=== PATIENT | male | born 1980 | race American Indian/Alaskan Native ===

== ENCOUNTER 2017-04-01 10:07 | Emergency (ER) | payer MEDICAID ==
[~2017-04-01] VITALS: Ht 180.3 cm; Wt 82.0 kg
[2017-04-01 10:09] VITALS: BP 129/66
== END 2017-04-01 10:32 | disposition left against medical advice (07) ==
LOC: ED 10:26
DX: F10.10 Alcohol abuse, uncomplicated (principal); Z53.21 Procedure and treatment not carried out due to patient leaving prior to being seen by health care provider

== ENCOUNTER 2017-07-27 15:11 | Emergency (ER) | payer MEDICAID ==
[~2017-07-27] VITALS: Ht 167.6 cm; Wt 70.0 kg
[2017-07-27] MEDS ORDERED: BACITRACIN ZINC OINT 500U/GM, 0.9 GM ONE (16:40)
[2017-07-27] MEDS ORDERED: LIDOCAINE 1%, 20ML ONE (16:55)
[2017-07-27] MEDS ORDERED: LIDOCAINE 1%, 20ML SQ ONE (17:00)
[2017-07-27 18:00] VITALS: BP 111/66
== END 2017-07-27 18:48 | disposition home or self-care (01) ==
LOC: ED 18:42
DX: S09.90XA Unspecified injury of head, initial encounter (principal); F10.221 Alcohol dependence with intoxication delirium; E11.9 Type 2 diabetes mellitus without complications; W22.8XXA Striking against or struck by other objects, initial encounter; Y93.89 Activity, other specified; Y92.488 Other paved roadways as the place of occurrence of the external cause; Y99.8 Other external cause status
CPT/HCPCS: 70450; 70486; 99284

== ENCOUNTER 2017-10-14 08:08 | Observation (INO) | payer MEDICAID ==
[~2017-10-14] VITALS: Ht 180.3 cm; Wt 93.0 kg
[2017-10-14] MEDS ORDERED: BENZ1TAB61 PO (08:24)
[2017-10-14] MEDS ORDERED: ZIPR80CA3 PO (08:24)
[2017-10-14] MEDS ORDERED: LISI5TAB7 PO (08:24)
[2017-10-14] MEDS ORDERED: METF500T4 PO (08:24)
[2017-10-14] MEDS ORDERED: SERT50TA5 PO (08:24)
[2017-10-14] MEDS ORDERED: OLAN10TA9 PO (08:24)
[2017-10-14 09:25] LABS: HEMATOCRIT 48.6 % (39.2-51.8); HEMOGLOBIN 16.5 g/dL (13.7-18.0); WHITE BLOOD COUNT 11.3 x10^3/uL (3.4-10)
[2017-10-14 09:32] LABS: BLOOD UREA NITROGEN 9 mg/dL (7-18)
[2017-10-14 09:35] LABS: ACETAMINOPHEN < 2 mcg/mL (10-30)
[2017-10-14 10:29] LABS: DAU SCREEN DISCLAIMER
[2017-10-14] MEDS ORDERED: ONDANSETRON ODT 4 MG PO PRN (23:00)
[2017-10-14] MEDS ORDERED: LORazepam 1MG TABLET PO PRN (23:00)
[2017-10-14] MEDS ORDERED: ACETAMINOPHEN 325 MG TABLET PO PRN (23:00)
[2017-10-14 23:23] VITALS: BP 129/83
[2017-10-15] MEDS: ZIPRASIDONE 40MG CAPSULE PO SCH ×2 (02:13→21:35)
[2017-10-15 07:43] VITALS: BP 128/78
[2017-10-15] MEDS: metFORMIN 500 MG TABLET PO SCH ×2 (08:54→21:35)
[2017-10-15] MEDS: SERTRALINE 50MG TABLET PO SCH (08:54)
[2017-10-15] MEDS: BENZTROPINE 1 MG TABLET PO SCH ×2 (08:54→21:35)
[2017-10-15] MEDS: LISINOPRIL 5 MG TABLET PO SCH (08:54)
[2017-10-15] MEDS: OLANZAPINE 10 MG TABLET PO SCH (08:55)
[2017-10-15 19:32] VITALS: BP 102/67
[2017-10-16 08:00] VITALS: BP 119/81
[2017-10-16] MEDS: OLANZAPINE 10 MG TABLET PO SCH (08:42)
[2017-10-16] MEDS: metFORMIN 500 MG TABLET PO SCH ×2 (08:42→20:41)
[2017-10-16] MEDS: LISINOPRIL 5 MG TABLET PO SCH (08:42)
[2017-10-16] MEDS: SERTRALINE 50MG TABLET PO SCH (08:42)
[2017-10-16] MEDS: BENZTROPINE 1 MG TABLET PO SCH ×2 (08:42→20:39)
[2017-10-16] MEDS ORDERED: ZIPRASIDONE 20 MG INJ IM PRN (16:30)
[2017-10-16] MEDS ORDERED: LURASIDONE 20 MG TABLET PO ONE (16:30)
[2017-10-16 19:39] VITALS: BP 118/81
[2017-10-16] MEDS: ZIPRASIDONE 20MG CAPSULE PO SCH (21:21)
[2017-10-17] MEDS: ZIPRASIDONE 20MG CAPSULE PO SCH (04:31)
[2017-10-17 07:00] VITALS: BP 113/75
[2017-10-17] MEDS: LISINOPRIL 5 MG TABLET PO SCH (08:34)
[2017-10-17] MEDS: BENZTROPINE 1 MG TABLET PO SCH ×2 (08:34→20:46)
[2017-10-17] MEDS: metFORMIN 500 MG TABLET PO SCH ×2 (08:34→20:46)
[2017-10-17] MEDS: SERTRALINE 50MG TABLET PO SCH (08:34)
[2017-10-17] MEDS: OLANZAPINE 5 MG TABLET PO SCH (08:35)
[2017-10-17] MEDS: LURASIDONE 20 MG TABLET PO SCH (08:38)
[2017-10-17] MEDS ORDERED: ZIPRASIDONE 20MG CAPSULE PO PRN (09:30)
[2017-10-18 01:33] VITALS: BP 125/83
[2017-10-18 08:04] VITALS: BP 122/79
[2017-10-18] MEDS: OLANZAPINE 5 MG TABLET PO SCH (08:53)
[2017-10-18] MEDS: LISINOPRIL 5 MG TABLET PO SCH (08:53)
[2017-10-18] MEDS: BENZTROPINE 1 MG TABLET PO SCH ×2 (08:53→20:57)
[2017-10-18] MEDS: metFORMIN 500 MG TABLET PO SCH ×2 (08:53→20:57)
[2017-10-18] MEDS: SERTRALINE 50MG TABLET PO SCH (08:53)
[2017-10-18] MEDS: LURASIDONE 20 MG TABLET PO SCH (08:56)
[2017-10-18 19:52] VITALS: BP 111/77
[2017-10-19 08:24] VITALS: BP 118/75
[2017-10-19] MEDS: BENZTROPINE 1 MG TABLET PO SCH ×2 (08:49→20:13)
[2017-10-19] MEDS: SERTRALINE 50MG TABLET PO SCH (08:49)
[2017-10-19] MEDS: LURASIDONE 20 MG TABLET PO SCH (08:50)
[2017-10-19] MEDS: metFORMIN 500 MG TABLET PO SCH ×2 (08:51→20:13)
[2017-10-19] MEDS: LISINOPRIL 5 MG TABLET PO SCH (08:51)
[2017-10-19] MEDS: OLANZAPINE 5 MG TABLET PO SCH (08:51)
[2017-10-19 20:09] VITALS: BP 111/74
[2017-10-20 07:24] VITALS: BP 115/73
[2017-10-20] MEDS: SERTRALINE 50MG TABLET PO SCH (08:28)
[2017-10-20] MEDS: LISINOPRIL 5 MG TABLET PO SCH (08:28)
[2017-10-20] MEDS: LURASIDONE 20 MG TABLET PO SCH (08:28)
[2017-10-20] MEDS: metFORMIN 500 MG TABLET PO SCH ×2 (08:28→20:37)
[2017-10-20] MEDS: BENZTROPINE 1 MG TABLET PO SCH ×2 (08:28→20:36)
[2017-10-20] MEDS: OLANZAPINE 5 MG TABLET PO SCH (08:33)
[2017-10-20 19:22] VITALS: BP 114/66
[2017-10-21] MEDS ORDERED: SERTRALINE 100MG TABLET ONE (07:45)
[2017-10-21 08:00] VITALS: BP 112/78
[2017-10-21] MEDS: metFORMIN 500 MG TABLET PO SCH ×2 (08:06→20:45)
[2017-10-21] MEDS: BENZTROPINE 1 MG TABLET PO SCH ×2 (08:06→20:45)
[2017-10-21] MEDS: LISINOPRIL 5 MG TABLET PO SCH (08:06)
[2017-10-21] MEDS: LURASIDONE 20 MG TABLET PO SCH (08:06)
[2017-10-21] MEDS: SERTRALINE 50MG TABLET PO SCH (08:07)
[2017-10-21] MEDS: OLANZAPINE 5 MG TABLET PO SCH (08:07)
[2017-10-21 20:14] VITALS: BP 123/81
[2017-10-22 07:23] VITALS: BP 116/81
[2017-10-22] MEDS ORDERED: SERTRALINE 100MG TABLET ONE (07:55)
[2017-10-22] MEDS: LISINOPRIL 5 MG TABLET PO SCH (08:23)
[2017-10-22] MEDS: OLANZAPINE 5 MG TABLET PO SCH (08:23)
[2017-10-22] MEDS: BENZTROPINE 1 MG TABLET PO SCH (08:23)
[2017-10-22] MEDS: metFORMIN 500 MG TABLET PO SCH (08:23)
[2017-10-22] MEDS: SERTRALINE 50MG TABLET PO SCH (08:24)
[2017-10-22] MEDS: LURASIDONE 20 MG TABLET PO SCH (08:24)
== END 2017-10-22 14:55 ==
LOC: ED 11:37 → SUATTDRO 22:49 → EDIP 22:51 → 3E 23:17
PROVIDERS: ADMIT Hospitalist; ATTEND Hospitalist
DX: R45.851 Suicidal ideations (principal); R45.850 Homicidal ideations; R44.0 Auditory hallucinations; F20.9 Schizophrenia, unspecified; E11.9 Type 2 diabetes mellitus without complications; I10 Essential (primary) hypertension; F12.90 Cannabis use, unspecified, uncomplicated; F17.210 Nicotine dependence, cigarettes, uncomplicated; Z79.4 Long term (current) use of insulin; Z91.14 Patient's other noncompliance with medication regimen; Z91.19 Patient's noncompliance with other medical treatment and regimen
CPT/HCPCS: 36415; 80048; 80307; 80329; 82040; 82962; 85025; 99285; G0378; G0479; G0480

== ENCOUNTER 2018-10-19 20:36 | Emergency (ER) | payer MEDICAID ==
[~2018-10-19] VITALS: Ht 180.3 cm; Wt 88.6 kg
[~2018-10-19 20:36] MED LIST: BENZ1TAB61 PO; LISI5TAB7 PO; METF500T17 PO; OLAN10TA9 PO; SERT50TA5 PO; ZIPR80CA3 PO
[2018-10-19 20:39] VITALS: BP 120/70
[2018-10-19 21:44] LABS: BASOPHILS # (AUTO) 0.07 x10^3/uL (0-0.1); BASOPHILS % (AUTO) 1 % (0-1); EOSINOPHILS # (AUTO) 0.03 x10^3/uL (0-0.4); EOSINOPHILS % (AUTO) 0 % (1-7); LYMPHOCYTES # (AUTO) 2.48 x10^3/uL (1-3.4); LYMPHOCYTES % (AUTO) 28 % (22-44); MD NO; MEAN CORPUSCULAR HEMOGLOBIN 28.2 pg (27.5-34.5); MEAN CORPUSCULAR HGB CONC 33.3 g/dL (33.2-36.2); MEAN CORPUSCULAR VOLUME 84.5 fL (81-97); MEAN PLATELET VOLUME 7.2 fL (7.4-10.4); MONOCYTES # (AUTO) 0.96 x10^3/uL (0.2-0.8); MONOCYTES % (AUTO) 11 % (2-9); NEUTROPHILS # (AUTO) 5.25 x10^3/uL (1.8-6.8); NEUTROPHILS % (AUTO) 60 % (42-75); PLATELET COUNT 393 x10^3/uL (130-400); RED BLOOD COUNT 5.01 x10^6/uL (4.38-5.82)
[2018-10-19 21:52] LABS: ALBUMIN 3.3 g/dL (3.4-5.0); ANION GAP 13 mmol/L (5-15); CALCIUM 8.2 mg/dL (8.5-10.1); CHLORIDE 105 mmol/L (98-107)
[2018-10-19 21:56] LABS: ALANINE AMINOTRANSFERASE 24 U/L (12-78); ALKALINE PHOSPHATASE 102 U/L (45-117); BILIRUBIN,TOTAL 0.4 mg/dL (0.2-1.0); CREATININE 0.61 mg/dL (0.7-1.3); TOTAL PROTEIN 7.8 g/dL (6.4-8.2)
[2018-10-19 21:57] LABS: ACETAMINOPHEN < 2 mcg/mL (10-30); SALICYLATE LEVEL < 1.7 mg/dL (2.8-20.0)
== END 2018-10-19 23:46 | disposition home or self-care (01) ==
LOC: ED 23:04 → MERGE 23:04 → EDBD 23:04 → ED 23:46
DX: F10.229 Alcohol dependence with intoxication, unspecified (principal); Z72.9 Problem related to lifestyle, unspecified; Z75.9 Unspecified problem related to medical facilities and other health care; Z91.14 Patient's other noncompliance with medication regimen; Y90.9 Presence of alcohol in blood, level not specified
CPT/HCPCS: 36415; 80053; 80307; 80329; 85025; 99283; G0480

== ENCOUNTER 2018-12-23 00:22 | Emergency (ER) | payer MEDICAID ==
[~2018-12-23] VITALS: Ht 180.3 cm; Wt 88.0 kg
[~2018-12-23 00:22] MED LIST changes: +SERT50TA28 PO; -SERT50TA5 PO
--- NOTE | 2018-12-23 00:22 | NUR ---
BIB EMS for auditory hallucinations x "my whole life," states that he "hears the ," pt going off on tangents about the [place] [employer], the FBI, and how "the government owns" him.
--- NOTE | 2018-12-23 00:26 | NUR ---
Pt ambulated to bathroom, urine sample requested. Pt back to room without incident.
[2018-12-23 00:35] VITALS: BP 146/94
--- NOTE | 2018-12-23 01:12 | NUR ---
Pt advised of steps in the process to evaluate him. Pt refused and started getting dressed, pt states "I'm not talking to no computer, I don't trust this room." Pt still denies SI/HI. advised that pt is not willing to stay.
[2018-12-23 01:15] LABS: BASOPHILS # (AUTO) 0.07 x10^3/uL (0-0.1); BASOPHILS % (AUTO) 1 % (0-1); EOSINOPHILS # (AUTO) 0.04 x10^3/uL (0-0.4); EOSINOPHILS % (AUTO) 0 % (1-7); LYMPHOCYTES # (AUTO) 2.86 x10^3/uL (1-3.4); LYMPHOCYTES % (AUTO) 22 % (22-44); MD NO; MEAN CORPUSCULAR HEMOGLOBIN 28.8 pg (27.5-34.5); MEAN CORPUSCULAR HGB CONC 33.7 g/dL (33.2-36.2); MEAN CORPUSCULAR VOLUME 85.5 fL (81-97); MEAN PLATELET VOLUME 7.2 fL (7.4-10.4); MONOCYTES # (AUTO) 0.88 x10^3/uL (0.2-0.8); MONOCYTES % (AUTO) 7 % (2-9); NEUTROPHILS # (AUTO) 9.49 x10^3/uL (1.8-6.8); NEUTROPHILS % (AUTO) 71 % (42-75); PLATELET COUNT 350 x10^3/uL (130-400); RED BLOOD COUNT 5.17 x10^6/uL (4.38-5.82); RED CELL DISTRIBUTION WIDTH 15.1 % (9.4-14.8)
[2018-12-23 01:27] LABS: ALBUMIN 3.7 g/dL (3.4-5.0); ANION GAP 8 mmol/L (5-15); CALCIUM 8.2 mg/dL (8.5-10.1); CHLORIDE 109 mmol/L (98-107); CREATININE 0.74 mg/dL (0.7-1.3); SALICYLATE LEVEL 2.1 mg/dL (2.8-20.0)
[2018-12-23 01:29] LABS: AMPHETAMINE SCREEN, URINE Negative (Negative); BARBITURATE SCREEN, URINE Negative (Negative); BENZODIAZEPINE SCREEN, URINE Negative (Negative); CANNABINOID SCREEN, URINE Negative (Negative); COCAINE SCREEN, URINE Negative (Negative); METHADONE SCREEN, URINE Negative (Negative); OPIATE SCREEN, URINE Negative (Negative)
[2018-12-23 01:29] LABS: ACETAMINOPHEN < 2 mcg/mL (10-30)
== END 2018-12-23 01:16 | disposition left against medical advice (07) ==
LOC: ED 00:45
DX: F99 Mental disorder, not otherwise specified (principal); F20.9 Schizophrenia, unspecified; E11.9 Type 2 diabetes mellitus without complications; F17.200 Nicotine dependence, unspecified, uncomplicated
CPT/HCPCS: 36415; 80048; 80307; 80329; 82040; 85025; 99284; G0480

== ENCOUNTER 2018-12-26 23:43 | Emergency (ER) | payer MEDICAID ==
[~2018-12-26] VITALS: Ht 180.3 cm; Wt 74.0 kg
[2018-12-27] MEDS ORDERED: DIPH,PERTUSS(ACELL),TET VAC/PF 0.5 ML IM-VACC ONE ×2 (00:30→01:14)
[2018-12-27] MEDS ORDERED: LIDOCAINE-MPF 1%, 5ML ONE (01:12)
--- NOTE | 2018-12-27 02:35 | NUR ---
TASK RN: PT PULLED OFF MONITORING. PT RESTING IN GURNEY W/ EYES CLOSED. EVEN/REGULAR RESPIRATIONS NOTED. POC IS EYE ASSESSMENT WHEN SOBER.
--- NOTE | 2018-12-27 04:18 | NUR ---
Pt resting on gurney at this time, resperations equal and unlabored. Will cont to monitor.
[2018-12-27 04:22] VITALS: BP 132/88
--- NOTE | 2018-12-27 05:12 | NUR ---
PT REFUSING LAC REPAIR AND REFUSING TO LEAVE ROOM WHEN AFTER DC. SECURITY AT BEDSIDE FOR ASSISTANCE.
== END 2018-12-27 05:16 | disposition home or self-care (01) ==
LOC: ED 23:59
DX: S02.32XA Fracture of orbital floor, left side, initial encounter for closed fracture (principal); S01.511A Laceration without foreign body of lip, initial encounter; F10.120 Alcohol abuse with intoxication, uncomplicated; W01.0XXA Fall on same level from slipping, tripping and stumbling without subsequent striking against object, initial encounter; Y93.89 Activity, other specified; Y92.410 Unspecified street and highway as the place of occurrence of the external cause; Y99.8 Other external cause status
CPT/HCPCS: 70450; 70486; 72125; 90471; 90715

== ENCOUNTER 2019-02-04 10:11 | Emergency (ER) | payer MEDICAID ==
[~2019-02-04] VITALS: Ht 180.3 cm; Wt 92.6 kg
--- NOTE | 2019-02-04 10:31 | NUR ---
PA at bedside.
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
--- NOTE | 2019-02-04 11:03 | NUR ---
RECEIVED REPORT FROM MEGAN LOREDO, ASSUMING CARE OF PT.
[2019-02-04 11:04] LABS: BASOPHILS # (AUTO) 0.07 x10^3/uL (0-0.1); BASOPHILS % (AUTO) 1 % (0-1); EOSINOPHILS # (AUTO) 0.05 x10^3/uL (0-0.4); EOSINOPHILS % (AUTO) 1 % (1-7); LYMPHOCYTES # (AUTO) 1.37 x10^3/uL (1-3.4); LYMPHOCYTES % (AUTO) 26 % (22-44); MD NO; MEAN CORPUSCULAR HEMOGLOBIN 27.5 pg (27.5-34.5); MEAN CORPUSCULAR HGB CONC 32.5 g/dL (33.2-36.2); MEAN CORPUSCULAR VOLUME 84.8 fL (81-97); MEAN PLATELET VOLUME 7.7 fL (7.4-10.4); MONOCYTES # (AUTO) 0.47 x10^3/uL (0.2-0.8); MONOCYTES % (AUTO) 9 % (2-9); NEUTROPHILS # (AUTO) 3.25 x10^3/uL (1.8-6.8); NEUTROPHILS % (AUTO) 62 % (42-75); PLATELET COUNT 298 x10^3/uL (130-400); RED BLOOD COUNT 5.15 x10^6/uL (4.38-5.82); RED CELL DISTRIBUTION WIDTH 14.2 % (9.4-14.8)
[2019-02-04 11:12] LABS: ANION GAP 5 mmol/L (5-15); CALCIUM 8.4 mg/dL (8.5-10.1); CHLORIDE 105 mmol/L (98-107); CREATININE 0.58 mg/dL (0.7-1.3)
[2019-02-04 11:13] LABS: ACETAMINOPHEN < 2 mcg/mL (10-30); SALICYLATE LEVEL < 1.7 mg/dL (2.8-20.0)
--- NOTE | 2019-02-04 11:18 | NUR ---
URINE COLLECTED AND WALKED TO LAB. PT RESTING IN ROOM AT THIS TIME, AWAITING LAB RESULTS AND PSYCH EVAL.
[2019-02-04 11:39] LABS: AMPHETAMINE SCREEN, URINE Negative (Negative); BARBITURATE SCREEN, URINE Negative (Negative); BENZODIAZEPINE SCREEN, URINE Negative (Negative); CANNABINOID SCREEN, URINE Negative (Negative); COCAINE SCREEN, URINE Negative (Negative); METHADONE SCREEN, URINE Negative (Negative); OPIATE SCREEN, URINE Negative (Negative)
--- NOTE | 2019-02-04 12:00 | NUR ---
THROUGHPUT RN: PACKET FAXED TO [facility], [facility]
--- NOTE | 2019-02-04 12:09 | NUR ---
Report from Kerri Meza. Pt asleep at this time. Wakes to voice. Pt denies SI or HI. States that "I'm just waiting for the doctor or something like that". Informed of plan for telespych. Calm and cooperative.
[2019-02-04] MEDS ORDERED: OLANZAPINE 5 MG TABLET PO ONE (13:30)
[2019-02-04] MEDS ORDERED: OLANZAPINE 5 MG TABLET ONE (14:16)
[2019-02-04] MEDS ORDERED: ACETAMINOPHEN 325 MG TABLET PO PRN (15:30)
[2019-02-04 15:55] LABS: HEMOGLOBIN A1C 8.5 % (4.2-6.3)
--- NOTE | 2019-02-04 17:45 | NUR ---
LUNCH BREAK NOTE: PT RESTING IN GURNEY IN NAD. PT BEING OBSERVED BY SITTER.
--- NOTE | 2019-02-04 18:10 | NUR ---
CAROLINE NEWTON DENIED DUE TO INSURANCE
[2019-02-04] MEDS: INSULIN LISPRO 100 UNITS/ML, PEN SQ-INSULIN SCH ×2 (21:00→22:06)
[2019-02-04] MEDS ORDERED: ENOXAPARIN 40 MG/0.4 ML ONE (21:55)
[2019-02-04] MEDS ORDERED: NICOTINE 7 MG/24 HR PATCH.TD24 ONE (21:55)
[2019-02-04] MEDS ORDERED: INSULIN LISPRO 100 UNITS/ML, PEN ONE (21:56)
[2019-02-04] MEDS: ENOXAPARIN 40 MG/0.4 ML SQ SCH (22:06)
[2019-02-04] MEDS: NICOTINE 7 MG/24 HR PATCH.TD24 TD SCH (22:07)
--- NOTE | 2019-02-05 00:27 | NUR ---
RECEIVED REPORT FROM VANESSA LOREDO. PT RESTING IN BED SLEEPING WITH EYES CLOSED. NO STATED NEEDS AT THIS TIME. SITTER AT DOOR FOR FREQUENT OBS. WILL CONTINUE TO MONITR.
--- NOTE | 2019-02-05 01:17 | NUR ---
PT RESTING IN BED WITH EYES CLOSED. NO NEEDS AT THIS TIME. SITTER AT DOOR.
--- NOTE | 2019-02-05 02:22 | NUR ---
PT RESTING IN BED WITH EYE SCLOSED. NO STATED NEEDS. RESP EVEN AND NON LABORED.
--- NOTE | 2019-02-05 03:10 | NUR ---
PT CONTINUES TO REST IN BED WITH EYES CLOSED. RESP EVEN AND NON LABORED. SITTER AT DOOR.
--- NOTE | 2019-02-05 04:21 | NUR ---
PT RESTING IN BED WITH EYES CLOSED. SITTER AT DOOR.
--- NOTE | 2019-02-05 05:01 | NUR ---
PT RESTING IN BED WITH EYES CLOSED, RESP EVEN AND NON LABORED. SITTER AT DOOR.
[2019-02-05 05:24] LABS: BASOPHILS # (AUTO) 0.04 x10^3/uL (0-0.1); BASOPHILS % (AUTO) 1 % (0-1); EOSINOPHILS # (AUTO) 0.22 x10^3/uL (0-0.4); EOSINOPHILS % (AUTO) 4 % (1-7); LYMPHOCYTES # (AUTO) 2.12 x10^3/uL (1-3.4); LYMPHOCYTES % (AUTO) 39 % (22-44); MD NO; MEAN CORPUSCULAR HGB CONC 32.8 g/dL (33.2-36.2); MEAN CORPUSCULAR VOLUME 85.2 fL (81-97); MEAN PLATELET VOLUME 7.3 fL (7.4-10.4); MONOCYTES # (AUTO) 0.52 x10^3/uL (0.2-0.8); MONOCYTES % (AUTO) 10 % (2-9); NEUTROPHILS # (AUTO) 2.55 x10^3/uL (1.8-6.8); NEUTROPHILS % (AUTO) 47 % (42-75); PLATELET COUNT 303 x10^3/uL (130-400); RED BLOOD COUNT 4.78 x10^6/uL (4.38-5.82); RED CELL DISTRIBUTION WIDTH 14.5 % (9.4-14.8)
[2019-02-05 05:32] LABS: CHLORIDE 110 mmol/L (98-107)
[2019-02-05] MEDS: INSULIN LISPRO 100 UNITS/ML, PEN SQ-INSULIN SCH ×3 (05:43→17:11)
[2019-02-05 05:49] LABS: ALANINE AMINOTRANSFERASE 56 U/L (12-78); ALBUMIN 2.8 g/dL (3.4-5.0); ALKALINE PHOSPHATASE 116 U/L (45-117); ANION GAP 5 mmol/L (5-15); BILIRUBIN,TOTAL 0.4 mg/dL (0.2-1.0); CALCIUM 8.4 mg/dL (8.5-10.1); CREATININE 0.66 mg/dL (0.7-1.3); TOTAL PROTEIN 6.7 g/dL (6.4-8.2)
--- NOTE | 2019-02-05 06:37 | NUR ---
PT SITTING UP ON EDGE OF BED, REQUESTED WATER. NO OTHER NEEDS STATED.
--- NOTE | 2019-02-05 07:03 | NUR ---
REPORT TO BETTY LOREDO. BREAKFAST HAS BEEN ORDERED.
[2019-02-05] MEDS ORDERED: INSULIN LISPRO 100 UNITS/ML, PEN ONE (08:35)
[2019-02-05] MEDS: metFORMIN 500 MG TABLET PO SCH (08:42)
--- NOTE | 2019-02-05 09:55 | NUR ---
report from FACUNDO Gordon. pt up self with steady gait to restroom. sitter at doorway for continuous monitoring. no other needs at this time.
--- NOTE | 2019-02-05 10:37 | NUR ---
pt up self with steady gait. currently taking shower. tech/sitter at doorway. no needs at this time.
--- NOTE | 2019-02-05 11:18 | NUR ---
THROUGHPUT RN: Packet faxed to [facility] and [facility]
[2019-02-05] MEDS ORDERED: LISINOPRIL 5 MG TABLET ONE (11:34)
[2019-02-05] MEDS: LISINOPRIL 5 MG TABLET PO SCH (11:38)
--- NOTE | 2019-02-05 11:38 | NUR ---
pt medicated per jan and provided with coffee and sprite. vss. pt resting in room lunch tray ordered. no other needs at this time.
--- NOTE | 2019-02-05 11:41 | NUR ---
THROUGHPUT RN: Confirmation fax received from [facility], second "busy" response from [facility], called and received new fax number [phone], fax sent at this time.
--- NOTE | 2019-02-05 11:50 | NUR ---
THROUGHPUT RN: Called [facility] and spoke with Thao who requested we retry sending to [phone] after two unsucessful attempts to fax packet to [phone]. Fax sent to [phone] as requested.
--- NOTE | 2019-02-05 12:02 | NUR ---
lunch trasy provided. pt eating in room. sitter at doorway for continuous monitoring. no needs at this time.
--- NOTE | 2019-02-05 12:17 | NUR ---
THROUGHPUT RN: Confirmation fax received from [facility]
--- NOTE | 2019-02-05 13:24 | NUR ---
pt resting in room. no needs at this time. sitter at doorway for continuous monitoring.
--- NOTE | 2019-02-05 14:17 | NUR ---
pt resting in room. sitter at doorway for continuous monitoring. no needs at this time.
--- NOTE | 2019-02-05 14:47 | NUR ---
hospitalist at bedside
--- NOTE | 2019-02-05 15:50 | NUR ---
PT RESTING IN ROOM. NO NEEDS AT THIS TIME. SITTER AT DOORWAY FOR CONTINUOUS MONITORING.
--- NOTE | 2019-02-05 16:54 | NUR ---
PT RESTING IN ROOM. DINNER TRAY ORDERED. NO NEEDS AT THIS TIME. SITTER AT DOOR WAY FOR CONTINUOUS MONITORING.
[2019-02-05] MEDS ORDERED: NICOTINE 7 MG/24 HR PATCH.TD24 ONE (17:04)
[2019-02-05] MEDS ORDERED: ENOXAPARIN 40 MG/0.4 ML ONE (17:04)
[2019-02-05] MEDS: NICOTINE 7 MG/24 HR PATCH.TD24 TD SCH (17:11)
[2019-02-05] MEDS: ENOXAPARIN 40 MG/0.4 ML SQ SCH (17:11)
--- NOTE | 2019-02-05 17:12 | NUR ---
pt resting in room. sitter at doorway for continuous monitoring. medicated per mar. refusing some medications. education provided but continues to refuse. no needs at this time. pt up to restroom with sitter.
--- NOTE | 2019-02-05 17:53 | NUR ---
dinner tray provided. pt eating in room. no needs at this time. sitter at doorway for continuous monitoring.
--- NOTE | 2019-02-05 18:54 | NUR ---
pt resting in room. no needs at this time. sitter at doorway for continuous monitoring.
--- NOTE | 2019-02-05 19:39 | NUR ---
pt resting in room. no needs at this time. sitter at doorway for continuous monitoring.
[2019-02-05] MEDS ORDERED: OLANZAPINE 5 MG TABLET ONE (20:15)
[2019-02-05] MEDS ORDERED: FLUOXETINE HCL 20 MG CAPSULE ONE (20:15)
--- NOTE | 2019-02-05 20:45 | NUR ---
pt moved to room 39 per request for working tv. pt resting in room watching tv. no needs at this time. sitter at doorway for continuous monitoring.
--- NOTE | 2019-02-05 21:36 | NUR ---
pt resting in room. provided crackers and peanut butter. no needs at this time. sitter at doorway for continuous monitoring.
--- NOTE | 2019-02-05 23:00 | NUR ---
REPORT FROM GLADYS BINGHAM RN. PT RESTING IN BED WITH EYES CLOSED. SITTER AT DOOR .
[2019-02-06] MEDS ORDERED: FLUOXETINE HCL 20 MG CAPSULE ONE ×2 (00:15→13:09)
[2019-02-06] MEDS ORDERED: OLANZAPINE 5 MG TABLET ONE ×2 (00:16→13:10)
[2019-02-06] MEDS: OLANZAPINE 5 MG TABLET PO SCH ×2 (00:19→13:17)
[2019-02-06] MEDS: FLUOXETINE HCL 20 MG CAPSULE PO SCH ×2 (00:19→13:17)
[2019-02-06] MEDS: metFORMIN 500 MG TABLET PO SCH ×3 (00:20→22:34)
[2019-02-06] MEDS: INSULIN LISPRO 100 UNITS/ML, PEN SQ-INSULIN SCH ×5 (00:20→22:43)
--- NOTE | 2019-02-06 00:20 | NUR ---
pt stated he received all his evening medication. pt resting calmly in bed. sitter at door
--- NOTE | 2019-02-06 00:32 | NUR ---
FLOAT RN: PT RESTING IN ROOM. SITTER AT DOOR. PT UNDER CONSTANT WATCH. WILL CONTINUE TO MONITOR.
--- NOTE | 2019-02-06 01:15 | NUR ---
REPORT GIVEN TO FACUNDO DAVIDSON
--- NOTE | 2019-02-06 01:45 | NUR ---
PT RESTING CALMLY IN BED, RESP EVEN AND NON LABORED. WILL CONTINUE TO MONITOR. SITTER AT DOOR.
--- NOTE | 2019-02-06 02:22 | NUR ---
PT RESTING CAMLY IN BED. NO NEEDS AT THIS TIME. SITTER AT DOOR.
--- NOTE | 2019-02-06 03:11 | NUR ---
PT RESTING CALMLY IN BED. RESP EVEN AND NON LABORED. SITTER AT DOOR
--- NOTE | 2019-02-06 04:51 | NUR ---
PT CONTINUES TO REST CALMLY IN BED. SITTER AT DOOR.
--- NOTE | 2019-02-06 05:41 | NUR ---
PT RESTING CALMLY IN BED WITH EYES CLOSED. NO STATED NEEDS AT THIS TIME.
--- NOTE | 2019-02-06 06:20 | NUR ---
MORNING FSBS DONE. PT CALM, FLAT. SITTER AT DOOR. WILL CONTINUE TO MONITOR.
--- NOTE | 2019-02-06 06:57 | NUR ---
Recieved bedside report from FACUNDO Hess. All questions answered. Pt asleep on hospital bed. NADN. All SI precautions in place. Sitter near doorway in direct line of sight for observation. Pt has even chest rise and fall.
--- NOTE | 2019-02-06 08:52 | NUR ---
Pt provided breakfast tray. NADN. No needs expressed. Sitter near doorway in direct line of sight for observation.
[2019-02-06] MEDS ORDERED: LISINOPRIL 5 MG TABLET ONE (13:09)
[2019-02-06] MEDS: LISINOPRIL 5 MG TABLET PO SCH (13:17)
--- NOTE | 2019-02-06 13:30 | NUR ---
LATE NOTE ENTRY FOR 929: Pt sleeping on bed. NADN. No needs expressed. Sitter in direct line of sight for observation.
--- NOTE | 2019-02-06 14:01 | NUR ---
LATE NOTE ENTRY FOR 1030: Pt sleeping on hospital bed. NADN. No needs expressed. Sitter near doorway in direct line of sight for observation.
--- NOTE | 2019-02-06 14:02 | NUR ---
LATE NOTE GREG FOR 1130: Pt sleeping on hospital bed. NADN. No needs expressed. Sitter near doorway in direct line of sight for observation.
--- NOTE | 2019-02-06 14:02 | NUR ---
LATE NOTE GREG FOR 1230: Pt sleeping on hospital bed. NADN. No needs expressed. Sitter near doorway in direct line of sight for observation.
--- NOTE | 2019-02-06 14:03 | NUR ---
LATE NOTE KRISTENY FOR 1330: Pt provided breakfast tray. Pt appreciative. NADN. No needs expressed. Sitter near doorway in direct line of sight for observation.
--- NOTE | 2019-02-06 14:24 | NUR ---
Pt requesting to shower. Provided pt with new gown, linens, towel, wash clothes, socks, and toiletries. Changed pt's linenes on bed. Pt appreciative. Sitter in doorway of shower in direct line of sight for observation.
[2019-02-06] MEDS ORDERED: ENOXAPARIN 40 MG/0.4 ML ONE (15:58)
[2019-02-06] MEDS ORDERED: NICOTINE 7 MG/24 HR PATCH.TD24 ONE (15:59)
[2019-02-06] MEDS: ENOXAPARIN 40 MG/0.4 ML SQ SCH (16:08)
[2019-02-06] MEDS: NICOTINE 7 MG/24 HR PATCH.TD24 TD SCH (16:08)
[2019-02-06] MEDS ORDERED: INSULIN LISPRO 100 UNITS/ML, PEN ONE (16:11)
--- NOTE | 2019-02-06 16:29 | NUR ---
LATE NOTE ENTRY FOR 153: Provided pt medication per EMAR. Pt appreciative. Pt asks, "Do you hear the voices I am hearing in my head? Is this from the diabetes? Is this because I am on new meds?". Pt education provided. Pt stated verbal understanding. NADN. Pt watching TV. Sitter near doorway in direct line of sight for observation. No needs expressed at this time.
--- NOTE | 2019-02-06 16:31 | NUR ---
Pt requesting coffee. Provided for pt. Pt appreciative. NADN. Pt watching TV and resting on gurney. No needs requested at this time. Sitter near doorway in direct line of sight for observation.
--- NOTE | 2019-02-06 17:52 | NUR ---
Pt resting on gurney watching TV. NADN. No needs expressed. All safety precautions in place. Sitter near doorway in direct line of sight for observation.
--- NOTE | 2019-02-06 19:08 | NUR ---
Provided report to FACUNDO Bowman. All questions answered. FACUNDO Bowman assuming care of pt at this time.
--- NOTE | 2019-02-06 19:30 | NUR ---
PT RESTING WITH EYES CLOSED, NO DISTESS NOTED, SITTER OUT WSID
--- NOTE | 2019-02-06 22:20 | NUR ---
FSBS DONE, PT MEDICATED PER SLIDING SCALE, GIVEN DIET SPITE
--- NOTE | 2019-02-07 | NUR ---
PT CONTINUES TO REST WITH EYE CLOSED, NO DISTRESS NOTED, SITTER OUTSIDE DOOR
--- NOTE | 2019-02-07 01:54 | NUR ---
PT RESTING WITH EYES CLOSED, NO DISTRESS NOTED, SITTER OUTSIDE DOOR
--- NOTE | 2019-02-07 02:26 | NUR ---
PT WANTS TO URINATE SOTTER IS AT DOOR GIVEN URINAL FOR URINATION.
--- NOTE | 2019-02-07 03:00 | NUR ---
PT RESING IN BED WITH EYES CLOSED, NO DISTRESS NOTE, SITTER OUTSIDE DOOR
--- NOTE | 2019-02-07 05:00 | NUR ---
PT RESTING QUIETLY WITH EYES CLOSED, NO DISTRESS NOTED, SITTER OUTSIDE DOOR
--- NOTE | 2019-02-07 07:10 | NUR ---
REPORT RECEIVED FROM NATO LOREDO. PATIENT SITTING ON BEDSIDE/WATCHGING T Addendum: 02/07/19 at 0758 by RFRUHLING PATIENT SITTING ON BEDSIDE WATCHING TV. ALERT/ORIENTED AND PLEASANT. VSS. FSBS 141. REPORTS HE IS HERE "BECAUSE THE VOICES WERE GETTING TOO LOUD, AND THE PLACE WHERE I WAS STAYING WAS DIRTY SO I NEEDED A PSYCH EVAL." DENIES AUDITORY/VISUAL STIMULI AT THIS TIME. DENIES DISCOMFORT OR ANY ADDITIONAL NEEDS. SUPERVISED TO RESTROOM WHERE PATIENT VOIDED (AMBULATED W/OUT DIFFICULTY). BREAKFAST ORDERED. ROOM REMAINS SECURED FOR PSYCH PRECUATIONS W/ BEDSIDE SITTER FOR SAFETY. PATIENT UPDATED ON ESTIMATED POC
--- NOTE | 2019-02-07 08:20 | NUR ---
PATIENT CONTINUES TO SIT ON BEDSIDE WATCHING TV. ALERT/ORIENTED AND PLEASANT. DENIES AUDITORY/VISUAL STIMULI AT THIS TIME. DENIES DISCOMFORT OR ANY ADDITIONAL NEEDS. BREAKFAST DELIVERED. GIVEN ADDITIONAL COFFEE. ROOM REMAINS SECURED FOR PSYCH PRECUATIONS W/ BEDSIDE SITTER FOR SAFETY. PATIENT UPDATED ON ESTIMATED POC (2N ADMIT). NO FURTHER CONCERNS AT THIS TIME
--- NOTE | 2019-02-07 09:20 | NUR ---
RESTING IN BED W/ SIDERAILS UP WATCHING TV. ALERT/ORIENTED AND PLEASANT. DENIES DISCOMFORT OR AUDITORY/VISUAL STIMULI AT THIS TIME. ATE ENTIRE BREAKFAST. ROOM REMAINS SECURED FOR PSYCH PRECUATIONS W/ BEDSIDE SITTER FOR SAFETY. NO FURTHER CONCERNS AT THIS TIME
[2019-02-07] MEDS: INSULIN LISPRO 100 UNITS/ML, PEN SQ-INSULIN SCH ×4 (09:54→21:26)
[2019-02-07] MEDS ORDERED: LISINOPRIL 5 MG TABLET ONE (10:02)
[2019-02-07] MEDS ORDERED: OLANZAPINE 5 MG TABLET ONE (10:03)
--- NOTE | 2019-02-07 10:40 | NUR ---
SITTING IN ROOM PLEASANTLY WATCHING TV. TALKED TO PATIENT FOR AWHILE TO PROVIDE COMPANY.APPEARS TO BE DOING WELL, CONTINUES TO DENIE DISCOMFORT OR AUDITORY/VISUAL STIMULI AT THIS TIME. LUNCH TRAY ORDERED. ROOM REMAINS SECURED FOR PSYCH PRECUATIONS W/ BEDSIDE SITTER FOR SAFETY. NO FURTHER CONCERNS AT THIS TIME. MOTION GRAPHICS ARTIST AT BEDSIDE- TOLD PATIENT THAT HE IS TO MEET A TUFTER IN A FEW MOMENTS FOR RE-EVAL
[2019-02-07] MEDS: LISINOPRIL 5 MG TABLET PO SCH (10:58)
[2019-02-07] MEDS: OLANZAPINE 5 MG TABLET PO SCH (10:58)
[2019-02-07] MEDS: FLUOXETINE HCL 20 MG CAPSULE PO SCH (10:58)
[2019-02-07] MEDS: metFORMIN 500 MG TABLET PO SCH ×2 (10:58→21:11)
--- NOTE | 2019-02-07 11:50 | NUR ---
SITTING IN ROOM WATCHING TV. REPORTS HE IS SLIGHLY IRRITATED FROM CONVERSATION HE HAD WITH WELDER/FABRICATOR ABOUT THE NECCESITY OF HIM STAYING IN THE HOSPITAL FOR FURTHER EVALUATION. ASSOCIATE LOAN OFFICER ABLE TO RE-DIRECT. ROOM REMAINS SECURED FOR PSYCH PRECUATIONS W/ BEDSIDE SITTER FOR SAFETY. NO FURTHER CONCERNS AT THIS TIME.
--- NOTE | 2019-02-07 12:30 | NUR ---
MOOD REMAINS SLIGHTLY NEGATIVE. IN TUBE CONVERSION TECHNICIAN SPENT TIME WITH PATIENT AGAIN TRYING TO POINT OUT POSITIVES. ATE ENTIRE LUNCH. REFUSED INSULIN COVERAGE (BS 158 SO IN TUBE CONVERSION TECHNICIAN DID NOT PUSH THE ISSUE WITH CURRENT MOOD). ROOM REMAINS SECURED FOR PSYCH PRECUATIONS W/ BEDSIDE SITTER FOR SAFETY. NO FURTHER CONCERNS AT THIS TIME.
--- NOTE | 2019-02-07 13:45 | NUR ---
PATIENT AOFFERED prn ATIVAN HE SEEMS TO BE FIXATED ON HOW HE SHOULD BE ABLE TO LEAVE. OFFERED ACTIVITIES (DIFFERENT BOOKS) & WALKED DOWELL WITH PATIENT. ROOM REMAINS SECURED FOR PSYCH PRECUATIONS W/ BEDSIDE SITTER FOR SAFETY. NO FURTHER CONCERNS AT THIS TIME.
--- NOTE | 2019-02-07 14:50 | NUR ---
RESTING IN BED WATCHING TELEVISION. ROOM REMAINS SECURED FOR PSYCH PRECUATIONS W/ BEDSIDE SITTER FOR SAFETY. NO FURTHER CONCERNS AT THIS TIME.
--- NOTE | 2019-02-07 15:25 | NUR ---
RESTING IN ROOM WATCHING TELEVISION. DENIES DISCOMFORT. ROOM REMAINS SECURED FOR PSYCH PRECUATIONS W/ BEDSIDE SITTER FOR SAFETY. NO FURTHER CONCERNS AT THIS TIME.
[2019-02-07] MEDS ORDERED: ENOXAPARIN 40 MG/0.4 ML ONE (15:48)
[2019-02-07] MEDS ORDERED: NICOTINE 7 MG/24 HR PATCH.TD24 ONE (15:49)
[2019-02-07] MEDS: NICOTINE 7 MG/24 HR PATCH.TD24 TD SCH (16:37)
--- NOTE | 2019-02-07 16:47 | NUR ---
DINNER TRAY CALLED IN. NICOTINE PATCH REFUSED (PRIOR ONE REMOVED AND DISCARDED). ROOM REMAINS SECURED FOR PSYCH PRECUATIONS W/ BEDSIDE SITTER FOR SAFETY. NO FURTHER CONCERNS AT THIS TIME.
--- NOTE | 2019-02-07 17:12 | NUR ---
SPOKE TO DR COBIAN IN R/T TO PATIENT CONTINUED AGITATION AND REPORTS THAT ORDERED ATIVAN 'DOESN'T WORK ON ME BC I DRINK TO MUCH." VERBAL ORDER RECEIVED FOR HALDOL 6MG Q6 PRN NEEDEED FOR AGITATION. ALSO CLARIFIED NEED FOR LOVENOX PATIENT MOBILE HIS IS (WALKING HALLS ATLEAST 10 TIMES THIS SHIFT). VERBAL ORDER RECEIVED TO D/C LOVENOX. PATIENT UPDATED ON POC.
[2019-02-07] MEDS ORDERED: HALOPERIDOL 5 MG/ML IV PRN (17:30)
--- NOTE | 2019-02-07 18:22 | NUR ---
RESTING IN ROOM WATCHING TELEVISION. TALKING WITH SITTER. THE TWO SEEN TO BE LAUGHING TOGETHER. OPATIENT DENIES DISCOMFORT. ROOM REMAINS SECURED FOR PSYCH PRECUATIONS W/ BEDSIDE SITTER FOR SAFETY. NO FURTHER CONCERNS AT THIS TIME. INSULIN BEING HELD UNTIL DINNER TRAY RECEIVED (CALLED FOR THE 2ND TIME TO ASSURE DELIVERY)
--- NOTE | 2019-02-07 19:36 | NUR ---
PT RESTING CALMY READING BOOK,DENIES CURRENT THOUGHT OF SI OR HI, MEDICATED PER MAR, ROOM SECURED AND GARAGE DOORS DOWN, SITTER AT DOORWAY FOR CONTINOUS MONITORING.
[2019-02-07] MEDS ORDERED: LORazepam 1MG TABLET ONE (20:19)
--- NOTE | 2019-02-07 20:26 | NUR ---
PT RESTING ON GURNEY, REQUESTING MEDICATION FOR ANXIETY, KUNAL, IFORMED PT I WILL RETURN WITH HIS MEDICATIONS, SITTER AT DOORWAY FOR CONTINOUS MONITORING
--- NOTE | 2019-02-07 21:17 | NUR ---
PT MEDICATED PER JAN, PROVIDED PT WITH SNACK USING SI PRECAUTIONS, SITTERR AT DOORWAY FOR CONTINOUS MONITORING
--- NOTE | 2019-02-07 22:32 | NUR ---
PT RESTING ON GURNEY, DENIES NEEDS, NAD, SITTER AT DOORWAY FOR CONTINOUS MONITORING
--- NOTE | 2019-02-07 23:35 | NUR ---
PT RESTING WITH EYES CLOSED, NADN, EQUAL CHEST RISE/FALL OBSERVED, SITTER AT DOORWAY FOR CONTINOUS MONITORING
--- NOTE | 2019-02-08 00:23 | NUR ---
PT RESTING WITH EYES CLOSED, REPOSITIONED SELF IN BED, EQUAL CHEST RISE/FALL OBSERVED, SITTER AT DOORWAY FOR CONTINOUS MONITORING
--- NOTE | 2019-02-08 01:57 | NUR ---
PT RESTING WITH EYES CLOSED, NADN, EQUAL CHEST RISE/FALL OBSERVED, SITTER AT DOORWAY FOR CONTINOUS MONITORING
--- NOTE | 2019-02-08 03:23 | NUR ---
PT RESTING WITH EYES CLOSED, EQUAL CHEST RISE/FALL OBSERVED, SITTER AT DOORWAY FOR CONTINOUS MONITORING
--- NOTE | 2019-02-08 04:32 | NUR ---
PT RESTING IN BED WITH EYES CLOSED. EQUAL CHEST RISE/FALL OBSERVED, NO NEEDS AT THIS TIME. SITTER AT DOOR.
--- NOTE | 2019-02-08 05:37 | NUR ---
PT RESTING WITH EYES CLOSED, EQUAL CHEST RISE/FALL OBSERVED, SITTER AT DOORWAY FOR CONTINOUS MONITORING
--- NOTE | 2019-02-08 06:09 | NUR ---
PT RESTING WITH EYES CLOSED, EQUAL CHEST RISE/FALL NOTED, SITTER AT DOORWAY FOR CONTINOUS MONITORING
--- NOTE | 2019-02-08 07:02 | NUR ---
REPORT GIVEN TO FACUNDO DE
--- NOTE | 2019-02-08 07:05 | NUR ---
REPORT FROM HELEN LOREDO.
[2019-02-08] MEDS: INSULIN LISPRO 100 UNITS/ML, PEN SQ-INSULIN SCH ×4 (08:00→21:21)
--- NOTE | 2019-02-08 08:14 | NUR ---
PT IS RESTING IN BED WATCHING TV, RESPIRATIONS EQUAL AND NON LABORED. NAD. SITTER OUTSIDE THE ROOM.
--- NOTE | 2019-02-08 08:33 | NUR ---
PT GIVEN BREAKFAST TO EAT. PT IS APPRECIATIVE. SITTER OUTSIDE THE ROOM.
--- NOTE | 2019-02-08 08:42 | NUR ---
MEDICATIONS REQUESTED FROM PHARMACY.
[2019-02-08] MEDS: metFORMIN 500 MG TABLET PO SCH ×2 (08:59→21:16)
[2019-02-08] MEDS: LISINOPRIL 5 MG TABLET PO SCH (09:00)
[2019-02-08] MEDS: FLUOXETINE HCL 20 MG CAPSULE PO SCH (09:00)
[2019-02-08] MEDS: OLANZAPINE 5 MG TABLET PO SCH (09:00)
--- NOTE | 2019-02-08 10:00 | NUR ---
PT IS RESTING IN BED WATCHING TV, RESPIRATIONS EQUAL AND NON LABORED. NAD. SITTER OUTSIDE THE ROOM.
--- NOTE | 2019-02-08 11:08 | NUR ---
PT MEDICATED PER ORDER. PT IS RESTING IN BED WATCHING TV, RESPIRATIONS EQUAL AND NON LABORED. NAD. SITTER OUTSIDE THE ROOM.
--- NOTE | 2019-02-08 11:45 | NUR ---
BUILDING CONSTRUCTION ENGINEER AT BEDSIDE. PT IS ON THE PHONE WITH THE COURT.
--- NOTE | 2019-02-08 12:15 | NUR ---
PT GIVEN LUNCH TO EAT. PT IS APPRECIATIVE. SITTER OUTSIDE THE ROOM.
--- NOTE | 2019-02-08 13:16 | NUR ---
PT AMBULATED TO SHOWER WITH STEADY GAIT. SITTER OUTSIDE THE ROOM.
[2019-02-08] MEDS ORDERED: BACITRACIN ZINC OINT 500U/GM, 0.9 GM ONE (13:20)
--- NOTE | 2019-02-08 14:19 | NUR ---
PT IS RESTING IN BED WATCHING TV, RESPIRATIONS EQUAL AND NON LABORED. NAD. SITTER OUTSIDE THE ROOM.
--- NOTE | 2019-02-08 15:10 | NUR ---
PT IS RESTING IN BED WITH EYES CLOSED, RESPIRATIONS EQUAL AND NON LABORED. NAD. SITTER OUTSIDE THE ROOM.
[2019-02-08] MEDS: NICOTINE 7 MG/24 HR PATCH.TD24 TD SCH (15:30)
--- NOTE | 2019-02-08 15:58 | NUR ---
PT RESTING IN BED WITH EYES CLOSED, RESP EVEN AND NON LABORED. SITTER AT DOOR.
--- NOTE | 2019-02-08 16:55 | NUR ---
PT GIVEN DINNER TO EAT. PT IS APPRECIATIVE.
--- NOTE | 2019-02-08 18:06 | NUR ---
PT IS RESTING IN BED WATCHING TV, RESPIRATIONS EQUAL AND NON LABORED. NAD. SITTER OUTSIDE THE ROOM.
--- NOTE | 2019-02-08 18:56 | NUR ---
REPORT TO NORBERTO LOREDO.
--- NOTE | 2019-02-08 19:07 | NUR ---
PT REPORT FROM SANTINO LOREDO. THIS RN TO ASSUME CARE OF PT. RESTING COMFORTABLY ON GURNEY. NADN. WATCHING TV.
[2019-02-08] MEDS ORDERED: LISINOPRIL 5 MG TABLET ONE (21:06)
--- NOTE | 2019-02-08 22:37 | NUR ---
PT SLEEPING COMFORTABLY ON GURDIKE. RR EVEN AND UNLABORED. NADN. ROLLER DOORS IN PLACE. SITTER IN HALLWAY.
--- NOTE | 2019-02-08 23:55 | NUR ---
PT SLEEPING COMFORTABLY ON [place]. RR EVEN AND UNLABORED. NADN. ROLLER DOORS IN PLACE. SITTER IN HALLWAY.
--- NOTE | 2019-02-09 01:10 | NUR ---
PT SLEEPING COMFORTABLY. NADN. RR EVEN AND UNLABORED.
--- NOTE | 2019-02-09 02:44 | NUR ---
PT SLEEPING COMFORTABLY. NADN. RR EVEN AND UNLABORED.
--- NOTE | 2019-02-09 04:13 | NUR ---
PT SLEEPING COMFORTABLY. NADN. RR EVEN AND UNLABORED.
--- NOTE | 2019-02-09 05:07 | NUR ---
PT SLEEPING COMFORTABLY. NADN. RR EVEN AND UNLABORED.
--- NOTE | 2019-02-09 06:16 | NUR ---
PT SLEEPING COMFORTABLY. NADN. RR EVEN AND UNLABORED.
--- NOTE | 2019-02-09 06:58 | NUR ---
Chon murphy in [facility] - 02/09/19 at 0659 by CELIA PT REPORT TO JOSI LEVIN
--- NOTE | 2019-02-09 06:59 | NUR ---
PT REPORT TO JUAN LOREDO.
--- NOTE | 2019-02-09 07:14 | NUR ---
RECEIVED REPORT FROM CAYDEN LOREDO, PLAN OF CARE DISCUSSED. SITTER AT BS, ROOM SECURED
--- NOTE | 2019-02-09 07:17 | NUR ---
RECEIVED REPORT FROM CAYDEN LOREDO, PLAN OF CARE OF DISCUSSED, ROOM SECURED
[2019-02-09] MEDS: INSULIN LISPRO 100 UNITS/ML, PEN SQ-INSULIN SCH (07:30)
[2019-02-09 07:52] VITALS: BP 113/78
[2019-02-09] MEDS: metFORMIN 500 MG TABLET PO SCH (08:31)
[2019-02-09] MEDS ORDERED: LISINOPRIL 5 MG TABLET ONE (08:33)
[2019-02-09] MEDS: LISINOPRIL 5 MG TABLET PO SCH (08:34)
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
== END 2019-02-09 12:08 | disposition home or self-care (01) ==
LOC: ED 10:56 → EDIP 13:26 → UNDOADMOB 13:26 → ED 02-09 12:08
DX: F32.9 Major depressive disorder, single episode, unspecified (principal); R45.851 Suicidal ideations
CPT/HCPCS: 36415; 80048; 80053; 80307; 80329; 82040; 82962; 83036; 84443; 85025; 96372; 99285; J1650; G0480

== ENCOUNTER 2019-04-02 20:12 | Emergency (ER) | payer MEDICAID ==
[~2019-04-02] VITALS: Ht 180.3 cm; Wt 85.6 kg
[2019-04-02 20:15] VITALS: BP 142/76
[2019-04-02 21:24] LABS: BASOPHILS # (AUTO) 0.03 x10^3/uL (0-0.1); BASOPHILS % (AUTO) 0 % (0-1); EOSINOPHILS # (AUTO) 0.05 x10^3/uL (0-0.4); EOSINOPHILS % (AUTO) 1 % (1-7); LYMPHOCYTES # (AUTO) 2.58 x10^3/uL (1-3.4); LYMPHOCYTES % (AUTO) 27 % (22-44); MD NO; MEAN CORPUSCULAR HEMOGLOBIN 28.6 pg (27.5-34.5); MEAN CORPUSCULAR HGB CONC 32.2 g/dL (33.2-36.2); MEAN CORPUSCULAR VOLUME 88.8 fL (81-97); MEAN PLATELET VOLUME 7.6 fL (7.4-10.4); MONOCYTES % (AUTO) 5 % (2-9); NEUTROPHILS # (AUTO) 6.48 x10^3/uL (1.8-6.8); NEUTROPHILS % (AUTO) 67 % (42-75); PLATELET COUNT 313 x10^3/uL (130-400); RED BLOOD COUNT 5.64 x10^6/uL (4.38-5.82); RED CELL DISTRIBUTION WIDTH 15.9 % (9.4-14.8)
[2019-04-02 21:26] LABS: ALBUMIN 4.1 g/dL (3.4-5.0); ANION GAP 11 mmol/L (5-15); CALCIUM 8.8 mg/dL (8.5-10.1); CHLORIDE 108 mmol/L (98-107); CREATININE 0.87 mg/dL (0.7-1.3)
[2019-04-02 21:28] LABS: ACETAMINOPHEN < 2 mcg/mL (10-30); SALICYLATE LEVEL < 1.7 mg/dL (2.8-20.0)
== END 2019-04-02 23:16 | disposition home or self-care (01) ==
LOC: ED 20:45
DX: F10.220 Alcohol dependence with intoxication, uncomplicated (principal); E11.9 Type 2 diabetes mellitus without complications; F32.9 Major depressive disorder, single episode, unspecified
CPT/HCPCS: 36415; 80048; 80307; 82040; 85025; 93005; 99284

== ENCOUNTER 2019-04-16 14:13 | Emergency (ER) | payer MEDICAID ==
[~2019-04-16] VITALS: Ht 175.3 cm; Wt 68.2 kg
[2019-04-16 14:14] VITALS: BP 116/71
--- NOTE | 2019-04-16 14:58 | NUR ---
Pt brought in by EMS after "[facility]" called EMS to transport pt to ED. KUNAL. Pt states, "I took Xanax that I got from [facility] and drank a lot today." Pt unable to provide name, , past medical history, or any identification. Pt is resting on gurney with both bedrails up for safety precautions, call light within reach, and water cup provided.
--- NOTE | 2019-04-16 15:16 | NUR ---
Pt sleeping on [facility] with even chest rise and fall. NADN. Both bedrails up for safety measures. No needs expressed.
--- NOTE | 2019-04-16 15:26 | NUR ---
Pt ambulates with steady gait and balance with EDRN SBA. Pt requesting food. STAT food tray ordered. KUNAL.
--- NOTE | 2019-04-16 16:01 | NUR ---
Patient given discharge instructions and they have confirmed that they understand the instructions. Patient ambulatory with steady gait. Pt left with d/c paperwork, meal tray, and all personal belongings.
== END 2019-04-16 16:05 | disposition home or self-care (01) ==
LOC: EDBD → ED 15:44 → MERGE 15:44 → ED 16:05
DX: F10.120 Alcohol abuse with intoxication, uncomplicated (principal); Z72.9 Problem related to lifestyle, unspecified
CPT/HCPCS: 99283

== ENCOUNTER 2019-05-22 08:57 | Emergency (ER) | payer SELFPAY ==
[~2019-05-22] VITALS: Ht 180.3 cm; Wt 86.0 kg
[2019-05-22 09:01] VITALS: BP 124/80
== END 2019-05-22 09:43 | disposition home or self-care (01) ==
LOC: ED 09:10
DX: F33.9 Major depressive disorder, recurrent, unspecified (principal); E11.9 Type 2 diabetes mellitus without complications
CPT/HCPCS: 99284